=== PATIENT | female | born 1985 | race African-American/Black ===

== ENCOUNTER 2016-12-02 09:17 | Emergency (ER) | payer OTHER ==
[~2016-12-02 09:17] MED LIST: BUPR1FIL5 SL; CYCL-331 PO; CYCL5POW MC; CYCL5TAB PO; ETOD200C2 PO; HYDR-79 PO; HYDR-971 PO; IBUP600T16 PO; PRED20TA PO; PREN1COM3 PO; PREN1TAB99 PO; QUET25TA5 PO; TIZA4CAP3 PO; TRAM50TA PO; TRAZ150T49 PO
--- NOTE | 2016-12-02 11:33 | PHYS DOC ---
Past History Past Medical History: No Pertinent History Past Surgical History: , Tubal ligation Smoking: Non-smoker Alcohol Use: Occasionally Drug Use: None Adult General Chief Complaint Chief Complaint: BACK PAIN OR INJURY HPI HPI This 30-year-old patient presents with low back pain. She states that she was lifting a patient's patient slipped and she tried to catch them and now has pain in her low back. She states she's had back issues in the past. She continues to have pain in her back. She denies numbness and tingling or any other problems Review of Systems Review of Systems Constitutional: Denies fever or chills [] Eyes: Denies change in visual acuity, redness, or eye pain [] HENT: Denies nasal congestion or sore throat [] Respiratory: Denies cough or shortness of breath [] Cardiovascular: No additional information not addressed in HPI [] GI: Denies abdominal pain, nausea, vomiting, bloody stools or diarrhea [] : Denies dysuria or hematuria [] Musculoskeletal: Denies back pain or joint pain [] Integument: Denies rash or skin lesions [] Neurologic: Denies headache, focal weakness or sensory changes [] Endocrine: Denies polyuria or polydipsia [] Current Medications Current Medications Current Medications Medications (Trade) Dose Ordered Sig/Erin Start Time Stop Time Status Last Admin Dose Admin Acetaminophen/ Hydrocodone Bitart (Lortab 5/325) 2 tab 1X ONCE 12/02/16 11:45 12/02/16 11:46 12/02/16 11:27 2 TAB Allergies Allergies Allergies Coded Allergies Type Severity Reaction Last Updated Verified No Known Drug Allergies 09/14/15 No Physical Exam Physical Exam Constitutional: Well developed, well nourished, no acute distress, non-toxic appearance. [] HENT: Normocephalic, atraumatic, bilateral external ears normal, oropharynx moist, no oral exudates, nose normal. [] Eyes: PERRLA, EOMI, conjunctiva normal, no discharge. [] Neck: Normal range of motion, no tenderness, supple, no stridor. [] Cardiovascular:Heart rate regular rhythm, no murmur [] Lungs & Thorax: Bilateral breath sounds clear to auscultation [] Abdomen: Bowel sounds normal, soft, no tenderness, no masses, no pulsatile masses. [] Skin: Warm, dry, no erythema, no rash. [] Back: Patient has tenderness over her low back to palpation . [] Leg raising is negative motor strength is normal sensation is normal Extremities: No tenderness, no cyanosis, no clubbing, ROM intact, no edema. [] Neurologic: Alert and oriented X 3, normal motor function, normal sensory function, no focal deficits noted. [] Psychologic: Affect normal, judgement normal, mood normal. [] Current Patient Data Vital Signs Vital Signs Date Time Temp Pulse Resp B/P (MAP) Pulse Ox O2 Delivery O2 Flow Rate FiO2 12/02/16 11:28 86 20 142/80 (100) 98 Room Air EKG EKG [] Radiology/Procedures Radiology/Procedures [] Impressions: Low back strain Course & Med Decision Making Course & Med Decision Making Pertinent Labs and Imaging studies reviewed. (See chart for details) [] Dragon Disclaimer Dragon Disclaimer This chart was dictated in whole or in part using Voice Recognition software in a busy, high-work load, and often noisy Emergency Department environment. It may contain unintended and wholly unrecognized errors or omissions. Departure Departure: Disposition: 01 HOME, SELF-CARE Condition: STABLE Referrals: PREETI ZABALA MD (PCP) SAIDA BARRY MD December 02, 2016 11:33
[2016-12-02] MEDS ORDERED: HYDROcodone/APAP 5/325MG 1 TAB TABLET PO ONE (11:45)
[2016-12-02] MEDS ORDERED: HYDR-2758 PO (11:48)
[2016-12-02] MEDS ORDERED: CYCL5TAB PO (11:48)
[2016-12-02] MEDS ORDERED: NAPR500T PO (11:49)
[2016-12-02 11:55] VITALS: BP 138/97
== END 2016-12-02 11:55 | disposition home or self-care (01) ==
LOC: ER 09:17
DX: S39.012A Strain of muscle, fascia and tendon of lower back, initial encounter (principal); X58.XXXA Exposure to other specified factors, initial encounter; Y93.89 Activity, other specified; Y99.8 Other external cause status; Y92.89 Other specified places as the place of occurrence of the external cause
CPT/HCPCS: 99283